=== PATIENT | female | born 1985 | race Caucasian/White ===

== ENCOUNTER 2018-12-28 09:15 | Emergency (ER) | payer BC ==
[2018-12-28 09:48] VITALS: BP 130/80
--- NOTE | 2018-12-28 10:12 | UC ---
Bite Injury/Animal HPI - HPI Summary HPI Summary: 33-year-old female presents with complaints of redness and swelling to her right hand after being bit by her cat last evening. Patient states cat is an indoor cat and it is up-to-date on immunizations. Denies fever, chills, joint pain, decreased range of motion, numbness, tingling. - History of Current Complaint Chief Complaint: UCBiteInjury Stated Complaint: RIGHT HAND CAT BITE Time Seen by Provider: 12/28/18 10:09 Hx Obtained From: Patient Hx Last Menstrual Period: 12/10/18 Pain Intensity: 5 - Allergies/Home Medications Allergies/Adverse Reactions: Allergies Allergy/AdvReac Type Severity Reaction Status Date / Time cefaclor [From [facility]] Allergy Hives Verified 12/28/18 09:44 Home Medications: Home Medications Bupropion XL* [Wellbutrin XL *] 300 mg PO DAILY 12/28/18 [History Confirmed ] Desog-E.estradiol/E.estradiol [Azurette 0.15-0.02/0.01 mg (20/08)] 1 tab PO DAILY 12/28/18 [History Confirmed 12/28/18] PMH/Surg Hx/FS Hx/Imm Hx Previously Healthy: Yes Psychological History: Depression - Surgical History Surgical History: None - Family History Known Family History: Positive: Non-Contributory - Social History Occupation: Employed Full-time Lives: With Family Alcohol Use: Occasionally Substance Use Type: None Smoking Status (MU): Never Smoked Tobacco - Immunization History Most Recent Tetanus Shot: September 2018 Review of Systems All Other Systems Reviewed And Are Negative: Yes Constitutional: Negative: Fever, Chills Skin: Positive: Other - See HPI Respiratory: Positive: Negative Cardiovascular: Positive: Negative Gastrointestinal: Positive: Negative Genitourinary: Positive: Negative Motor: Negative: Weakness Neurovascular: Negative: Decreased Sensation Musculoskeletal: Negative: Arthralgia, Decreased ROM Neurological: Positive: Negative Is Patient Immunocompromised?: No Physical Exam - Summary Physical Exam Summary: GENERAL APPEARANCE: Well developed, well nourished, alert and cooperative, and appears to be in no acute distress. CARDIAC: Normal S1 and S2. No S3, S4 or murmurs. Rhythm is regular. There is no peripheral edema, cyanosis or pallor. Extremities are warm and well perfused. Capillary refill is less than 2 seconds. Peripheral pulses intact. LUNGS: Clear to auscultation without rales, rhonchi, wheezing or diminished breath sounds. ABDOMEN: Positive bowel sounds. Soft, nondistended, nontender. No guarding or rebound. No masses or hepatosplenomegally. MUSKULOSKELETAL: ROM intact to all extremities. No joint erythema or tenderness. Normal muscular development. Normal gait. EXTREMITIES: Single puncture wound noted to dorsal right hand in the webbing between the index and middle fingers with a 5 cm area of erythema and edema to the dorsal hand. There is a 3 cm red streak extending proximally from the area of erythema. SKIN: Skin normal color, texture and turgor. Triage Information Reviewed: Yes Vital Signs: Initial Vital Signs Temp 97.8 F 12/28/18 09:46 Pulse 99 12/28/18 09:46 Resp 15 12/28/18 09:46 BP 130/80 12/28/18 09:46 Pulse Ox 98 12/28/18 09:46 Vital Signs Reviewed: Yes Images Hands: 1 - Single puncture wound without drainage 2 - 5 cm area of erythema and mild edema 3 - Red streak Bite Injury Course/Dx - Course Course Of Treatment: 33-year-old female presents with complaints of redness and swelling to her right hand after being bit by her cat last evening. Patient states cat is an indoor cat and it is up-to-date on immunizations. Denies fever, chills, joint pain, decreased range of motion, numbness, tingling. Afebrile. Vital signs stable. Patient had a single puncture wound noted to dorsal right hand in the webbing between the index and middle fingers with a 5 cm area of erythema and edema to the dorsal hand, a 3 cm red streak extending proximally from the area of erythema, and otherwise unremarkable exam. Will treat for an infected cat bite of the right hand with Augmentin 875 mg twice a day 7 days. Patient has a reported allergy to Ceclor but states that she has taken penicillins in the past without any problems. She is to her in here or follow-up with her primary care provider in 2 days if symptoms are not improving. Anticipatory guidance and warning symptoms were reviewed with the patient. Verbalizes understanding and agrees with plan of care. - Differential Dx/Diagnosis Differential Diagnosis/HQI/PQRI: Cellulitis, Joint Space Infection, Puncture, Rabies Exposure, Superficial Infection Provider Diagnosis: Cat bite of right hand with infection Discharge ED - Sign-Out/Discharge Documenting (check all that apply): Patient Departure All imaging exams completed and their final reports reviewed: No Studies - Discharge Plan Condition: Stable Disposition: HOME Prescriptions: Amoxicillin/Clavulanate TAB* [Augmentin TAB 875*] 875 mg PO BID #14 tab Patient Education Materials: Animal Bite (ED) Referrals: Polo Conner MD [Primary Care Provider] - 2 Days Additional Instructions: The cat bite to your hand appears to be infected. We will start to on an antibiotic to treat the infection. Take Augmentin 875 mg twice a day for 7 days. Take acetaminophen (Tylenol) or ibuprofen (Advil, Motrin) according directions as needed for pain. Return here or follow-up with your primary care provider in 2 days if symptoms are not improving. Seek immediate medical attention in the emergency room if you develop a fever greater than 100.5 F, have rapid spreading of the redness, severe pain that is not managed with pain medication, severe swelling of the hand or fingers, numbness or tingling of the hand or fingers, or any worsening of symptoms. - Billing Disposition and Condition Condition: STABLE Disposition: Home
== END 2018-12-28 10:32 | disposition home or self-care (01) ==
LOC: UCCORT 09:15
DX: S61.451A Open bite of right hand, initial encounter (principal); W55.01XA Bitten by cat, initial encounter; Y92.9 Unspecified place or not applicable; F32.9 Major depressive disorder, single episode, unspecified; Z79.899 Other long term (current) drug therapy; Z88.1 Allergy status to other antibiotic agents
CPT/HCPCS: 99202; G0463